=== PATIENT | male | born 1995 | race Caucasian/White ===

== ENCOUNTER 2021-02-06 19:31 | Emergency (ER) | payer OTHER ==
[~2021-02-06] VITALS: Ht 170.2 cm; Wt 72.6 kg
[~2021-02-06 19:31] MED LIST: CLEOCIN HCL300 MG PO; HYDROCORTISONE60 GM TP; KEFLEX500 MG PO
[2021-02-06] MEDS ORDERED: ABILIFY10 MG PO (19:40)
[2021-02-06] MEDS ORDERED: PROPRANOLOL 1010 MG PO (19:41)
[2021-02-06 20:15] LABS: URINE BILIRUBIN NEGATIVE (Negative); URINE BLOOD TRACE (Negative); URINE CLARITY CLEAR; URINE COLOR YELLOW; URINE GLUCOSE-RANDOM NEGATIVE (Negative); URINE KETONES NEGATIVE (Negative); URINE LEUKOCYTES-REFLEX NEGATIVE (Negative); URINE NITRITE-REFLEX NEGATIVE (Negative); URINE PROTEIN NEGATIVE (Negative)
[2021-02-06 20:23] LABS: AMP/METHAMP Negative (Negative); BARBITURATES Negative (Negative); BENZODIAZEPINES Negative (Negative); COCAINE Negative (Negative); METHADONE Negative (Negative); OPIATES Negative (Negative); PCP Negative (Negative); THC Negative (Negative)
[2021-02-06 20:28] LABS: ABSOLUTE EOSINOPHILS 0.1 thou/uL (0.0-0.7); ABSOLUTE LYMPHOCYTES 2.9 thou/uL (0.8-5.3); ABSOLUTE MONOCYTES 0.8 thou/uL (0.0-1.2); ABSOLUTE NEUTROPHILS 3.9 thou/uL (1.6-8.1); BASOPHILS 0.5 %; EOSINOPHILS 1.9 %; HEMATOCRIT 44.5 % (42.0-52.0); HEMOGLOBIN 14.8 gm/dL (14.0-18.0); LYMPHOCYTES 37.3 %; MCH 28.5 pg (26.0-34.0); MCHC 33.3 g/dL (28.0-37.0); MCV 85.5 fL (80.0-100.0); MONOCYTES 10.7 %; MPV 7.5 fl. (7.2-11.1); NUCLEATED RBCS 0 /100WBC; PLATELET COUNT* 258 thou/uL (150-400); POLYS 49.6 %; RDW-CV 14.1 % (10.5-14.5); WBC 7.9 thou/uL (4.0-11.0)
[2021-02-06 20:32] LABS: ANION GAP 5 mmol/L (7-16); BUN 10 mg/dL (7-18); CHLORIDE 101 mmol/L (98-107); CO2 32 mmol/L (21-32); CREATININE 1.1 mg/dL (0.6-1.3); GLUCOSE 95 mg/dL (70-99); POTASSIUM 3.6 mmol/L (3.5-5.1); SODIUM 138 mmol/L (136-145)
[2021-02-06 20:43] LABS: ALBUMIN 3.8 g/dL (3.4-5.0); ALKALINE PHOSPHATASE 84 U/L (46-116); NT-PRO BRAIN NAT PEPTIDE < 5 pg/mL (<300); SGOT 23 U/L (15-37); SGPT 28 U/L (30-65); TOTAL BILIRUBIN 0.3 mg/dL (<0.1-1.0); TOTAL PROTEIN 7.8 g/dL (6.4-8.2)
[2021-02-06 21:25] VITALS: BP 109/70
[2021-02-06 21:45] LABS: ESR (SEDRATE) 3 mm/hr (0-15)
--- NOTE | 2021-02-07 11:51 | EKG ---
[place] [address] ELECTROCARDIOGRAM REPORT Name: MODESTO SWEET Room: [facility]#: [id number] Admission: 02/06/21 Attend Phys: Discharge: 02/06/21 Date of : [birth year] Date of Service: 02/06/211939 Report #: [id number] THIS REPORT FOR: //name// [facility] ED Test Date: 2021-02-06 Test Time: 19:40:23 Pat Name: MODESTO SWEET Department: Room: Gender: [employer]ner: [place] : 1995 Requested By: Maggi Bell Order Number: [id number] MD: Arturo Herman Measurements Intervals [place] Rate: 85 P: 69 MT: 136 QRS: 73 QRSD: 83 T: 6 QT: 274 QTc: 326 Interpretive Statements Sinus rhythm Borderline evidence for LVH Nondiagnostic inferolateral Q waves Inferior and anterolateral ST segment alterations; ischemia must be considered Electronically Signed On 02-07-2021 11:51:01 GRAPHIC DESIGN MANAGER by Arturo Herman [email or web address] <ELECTRONICALLY SIGNED> By: Arturo Herman MD, FAC 02/07/21 1151 [id number] 39 Arturo Herman MD, [facility] /EPI
== END 2021-02-06 21:25 | disposition home or self-care (01) ==
LOC: M.ERS 19:31
PROVIDERS: Emergency Medicine
DX: R55 Syncope and collapse (principal); Z20.822 Contact with and (suspected) exposure to COVID-19; Z79.899 Other long term (current) drug therapy; Z88.2 Allergy status to sulfonamides

== ENCOUNTER 2021-04-15 19:09 | Emergency (ER) | payer OTHER ==
[~2021-04-15] VITALS: Ht 170.2 cm; Wt 68.0 kg
[~2021-04-15 19:09] MED LIST changes: +ABILIFY10 MG PO; +PROPRANOLOL 1010 MG PO
[2021-04-15 22:14] VITALS: BP 108/68
== END 2021-04-15 22:14 | disposition home or self-care (01) ==
LOC: M.ERS 19:09
DX: S61.412A Laceration without foreign body of left hand, initial encounter (principal); Z88.2 Allergy status to sulfonamides; W26.9XXA Contact with unspecified sharp object(s), initial encounter; Y93.89 Activity, other specified; Y92.89 Other specified places as the place of occurrence of the external cause; Y99.8 Other external cause status